=== PATIENT | female | born 1950 | race Caucasian/White ===

== ENCOUNTER → 2016-07-06 | Outpatient (CLI) | payer MEDICARE ==
[~2016-07-06] MED LIST: AMLO5TAB2 PO; METO-272 PO; PRV20T PO; RMP5C PO
--- NOTE | 2016-07-07 13:44 | Diagnostic Imaging Report ---
Bilateral screening mammogram. The current study was also evaluated with a Computer Aided Detection (CAD) system. INDICATION: Screening. No current complaints stated on the questionnaire. COMPARISON: 06/27/15. FINDINGS: The breasts are composed of scattered fibroglandular densities, slightly more dense in the central lateral aspect of each breast. There are punctate calcifications seen. Allowing for technique and positional differences, no suspicious change is seen. IMPRESSION: No significant change. ACR BI-RADS Category 2: Benign findings. Result letter will be mailed to the patient. Note: At least 10% of breast cancer is not imaged by mammography. Dictated by: Dictated on workstation # [id number]
== END ==
LOC: RAD 09:06
PROVIDERS: ATTEND Internal Medicine
DX: Z12.31 Encounter for screening mammogram for malignant neoplasm of breast (principal)
CPT/HCPCS: 77067

== ENCOUNTER → 2017-07-08 | Outpatient (CLI) | payer MEDICARE ==
--- NOTE | 2017-07-08 12:29 | Diagnostic Imaging Report ---
Indication: Routine screening. Comparison is made with prior study from 07/06/2016 and 06/27/2015. 2-D and 3-D bilateral screening mammography was performed with CAD. FIndings: Scattered fibroglandular densities are identified bilaterally. There is a bilobed density in the inferior right breast at mid depth, best seen on the MLO view. No correlate on the CC view is seen. This appears to be slightly lateral on the sae views. Extra views are recommended. No other masses identified. No malignant- appearing calcifications are seen. The axillae are unremarkable. Impression: BI-RADS 0 Right breast density. Additional views are recommended for further evaluation. ACR BI-RADS Category 0: Incomplete. (Needs additional imaging evaluation). Result letter will be mailed to the patient. Note: At least 10% of breast cancer is not imaged by mammography. Dictated by: Dictated on workstation # [id number]
== END ==
LOC: RAD 08:25
PROVIDERS: ATTEND Internal Medicine
DX: Z12.31 Encounter for screening mammogram for malignant neoplasm of breast (principal)
CPT/HCPCS: 77067

== ENCOUNTER → 2017-07-27 | Outpatient (CLI) | payer MEDICARE ==
--- NOTE | 2017-07-27 09:12 | Diagnostic Imaging Report ---
Indication: Right breast density. Patient presents for additional views. Correlation is made with recent screening study from 07/08/2017. 2-D and 3-D unilateral right diagnostic mammography was performed including spot compression ML and conventional ML views. Additional views confirm the presence of a circumscribed tiny lobulated nodular density in the inferior right breast approximately 8 cm from the nipple. This appears fairly benign appearance, appears to be slightly lateral. Impression: BI-RADS 0 Circumscribed slightly lobulated tiny nodular density in the inferior right breast. Further evaluation with ultrasound is recommended. ACR BI-RADS Category 0: Incomplete. (Needs additional imaging evaluation). Result letter will be mailed to the patient. Note: At least 10% of breast cancer is not imaged by mammography. Dictated by: Dictated on workstation # [id number]
--- NOTE | 2017-07-27 09:17 | Diagnostic Imaging Report ---
Indication: Right breast density. Correlation study with diagnostic mammogram earlier the same day. Sonographic interrogation of the inferior and slightly outer right breast was performed. At the 7:30 location, approximately 8 cm from the nipple, there is a simple 4 mm cyst. This could potentially represent the density noted on recent mammogram. No other abnormalities are detected. No solid masses seen. Impression: BI-RADS 3 A 4 mm simple cyst 7:30 location of the right breast, 8 cm from the nipple. This could conceivably correlate with the mammographic density. Even so, followup right mammogram and right breast ultrasound in 6 months is recommended to show continued stability. Dictated by: Dictated on workstation # [id number]
== END ==
LOC: RAD 08:19
PROVIDERS: ATTEND Internal Medicine
DX: N60.01 Solitary cyst of right breast (principal)

== ENCOUNTER → 2018-01-23 | Outpatient (CLI) | payer MEDICARE ==
--- NOTE | 2018-01-24 09:04 | Diagnostic Imaging Report ---
INDICATION: Right breast mass. Diagnostic right mammogram The screening mammogram performed on 07/27/2017 suggested a lobulated nodular density in the inferior aspect of the right breast. The ultrasound examination of this area suggested a small cyst. On this exam the nodular density in question is again evident and does not seem to have changed adversely. I do suspect that this is a benign process. A followup ultrasound exam is pending for further evaluation. The fibroglandular tissue in the right breast is heterogeneously dense. This does limit the sensitivity of this exam. Overall, there does not appear to have been any significant change when compare the previous study. There is no primary or second sign of malignancy noted. IMPRESSION: The small nodular density in the inferior aspect of the right breast seen previously appears stable. Most likely this is a benign process. Ultrasound is pending for further study. ACR BI-RADS Category 0: Incomplete. (Needs additional imaging evaluation). Result letter will be mailed to the patient. Note: At least 10% of breast cancer is not imaged by mammography. Dictated by: Dictated on workstation # [id number]
--- NOTE | 2018-01-24 10:16 | Diagnostic Imaging Report ---
EXAMINATION: Ultrasound of the right breast limited. INDICATION: Abnormal mammogram The diagnostic mammogram performed on 07/27/2017 noted a lobulated nodular density in the inferior aspect of the right breast. The ultrasound exam performed on the same day suggested a 4 mm simple cyst in the 7:30 position of the right breast. The diagnostic mammogram performed earlier today suggest that the nodular density in question was stable. On this exam the cyst in the 7:30 position has decreased in size and now measures approximately 3 MM. This cyst still has a generally benign appearance. In the interval since the prior study a bilobed avascular hypoechoic lesion has developed in the 6 o'clock position of the breast roughly 3 CM from the nipple. Whether this corresponds to the density seen on mammogram is not certain. I do suspect that this is a benign process. Even so, I would recommend that a short-term (6 month) followup mammogram and ultrasound exam of the right breast be performed for continued evaluation. IMPRESSION: The small suspected cyst in the 7:30 position of the right breast and the bilobed hypoechoic lesion in the 6 o'clock position are most likely benign. There is no solid mass to suggest malignancy. Recommendations as above. ACR BI-RADS Category 3: Probably benign findings. Dictated by: Dictated on workstation # [id number]
== END ==
LOC: RAD 12:50
PROVIDERS: ATTEND Internal Medicine
DX: N60.01 Solitary cyst of right breast (principal); N63.10 Unspecified lump in the right breast, unspecified quadrant

== ENCOUNTER → 2018-07-14 | Outpatient (CLI) | payer MEDICARE ==
--- NOTE | 2018-07-14 15:40 | Diagnostic Imaging Report ---
Indication: Followup right breast nodule. Correlation is made with prior mammogram from 07/08/2017, 01/23/2018. 2-D and 3-D bilateral diagnostic mammography was performed with CAD. Scattered fibroglandular densities are identified bilaterally. Nodular density in the inferior right breast on MLO view appears to be stable. No new mass is seen. No malignant-appearing microcalcifications are identified. Axillae are unremarkable. Impression: BI-RADS category 0 Stable nodular density inferior right breast. Further evaluation of previously noted nodules at the 7:30 and 6 o'clock location right breast with ultrasound is recommended and will be performed today. ACR BI-RADS Category 0: Incomplete. (Needs additional imaging evaluation). Result letter will be mailed to the patient. Note: At least 10% of breast cancer is not imaged by mammography. Dictated by: Dictated on workstation # [id number]
--- NOTE | 2018-07-14 15:44 | Diagnostic Imaging Report ---
Indication: Right breast nodules. Patient presents for followup. Correlation was made with prior right breast ultrasound from 01/23/2018. Sonographic interrogation of the 7:30 and 6 clock locations of the right breast performed. At the 7:30 location, 7 cm from the nipple, there is a 2 mm x 2 mm x 3 mm circumscribed hypoechoic nodule, suggestive of a cyst. This is stable to perhaps slightly smaller when compared with prior ultrasound. 6 clock location, 3 cm from the nipple, does show a bilobed hypoechoic nodule measuring approximate 4 mm x 2 mm. This is stable to perhaps slightly smaller when compared with prior ultrasound. No new mass is detected. Impression: BI-RADS category 2 Benign-appearing hypoechoic nodule 6 o'clock and 7:30 location of the right breast. These are stable when compared to the exam from 01/23/2018. Patient may return to routine annual screening mammography. ACR BI-RADS Category 2: Benign findings. Result letter will be mailed to the patient. Note: At least 10% of breast cancer is not imaged by mammography. Dictated by: Dictated on workstation # [id number]
== END ==
LOC: RAD 12:20
PROVIDERS: ATTEND Internal Medicine
DX: N63.13 Unspecified lump in the right breast, lower outer quadrant (principal)
CPT/HCPCS: 77066

== ENCOUNTER → 2018-08-18 | Outpatient (CLI) | payer MEDICARE ==
--- NOTE | 2018-08-18 09:19 | Diagnostic Imaging Report ---
INDICATION: Chest wall and back pain, greatest on the right, symptoms 3 weeks in duration. FINDINGS: The lungs are clear. The heart size and vascularity are normal. There is no effusion, pneumothorax or failure pattern. There is no free air beneath the diaphragms. Bilateral rib radiographs showed no bony destructive lesion. No fracture or dislocation. Note is made of stones involving the lower pole of the left kidney. IMPRESSION: Clear lungs with no acute chest wall pathology. Left-sided nephrolithiasis noted. Dictated by: Dictated on workstation # [id number]
== END ==
LOC: RAD 08:45
PROVIDERS: ATTEND Internal Medicine
DX: N20.0 Calculus of kidney (principal); R05 Cough; R07.81 Pleurodynia
CPT/HCPCS: 71111

== ENCOUNTER → 2019-08-03 | Outpatient (CLI) | payer MEDICARE ==
--- NOTE | 2019-08-03 09:38 | Diagnostic Imaging Report ---
INDICATION: Routine screening. COMPARISON is made with prior mammograms from 07/14/2018 and 07/08/2017. 2-D and 3-D bilateral screening mammography was performed with CAD. Scattered fibroglandular densities are identified bilaterally. Nodular density inferior right breast appears stable. No new mass or malignant appearing microcalcifications are seen. Axillae are unremarkable. IMPRESSION: BI-RADS Category 2 No mammographic features suspicious for malignancy are identified. ACR BI-RADS Category 2: Benign findings. Result letter will be mailed to the patient. Note: At least 10% of breast cancer is not imaged by mammography. Dictated by: Dictated on workstation # [id number]
== END ==
LOC: RAD 07:38
PROVIDERS: ATTEND Internal Medicine
DX: Z12.31 Encounter for screening mammogram for malignant neoplasm of breast (principal)
CPT/HCPCS: 77063; 77067

== ENCOUNTER → 2020-08-05 | Outpatient (CLI) | payer MEDICARE ==
--- NOTE | 2020-08-05 15:16 | Diagnostic Imaging Report ---
INDICATION: Routine screening. COMPARISON: 08/03/2019 and 07/14/2018. TECHNIQUE: 2D and 3D bilateral screening mammography was performed with CAD. FINDINGS: Scattered fibroglandular densities are identified bilaterally. The fibronodular parenchymal pattern appears to be stable. No spiculated mass or malignant appearing microcalcifications are seen. The axillae are unremarkable. IMPRESSION: No mammographic features suspicious for malignancy are identified. ACR BI-RADS Category 2: Benign findings. Result letter will be mailed to the patient. Note: At least 10% of breast cancer is not imaged by mammography. Dictated by: Dictated on workstation # [id number]
== END ==
LOC: RAD 08:30
PROVIDERS: ATTEND Internal Medicine
DX: Z12.31 Encounter for screening mammogram for malignant neoplasm of breast (principal)
CPT/HCPCS: 77063; 77067

== ENCOUNTER → 2021-08-18 | Outpatient (CLI) | payer MEDICARE ==
--- NOTE | 2021-08-18 11:50 | Diagnostic Imaging Report ---
INDICATION: Screening for osteoporosis COMPARISON: 06/05/2009 FINDINGS: AP Spine L1-L4: [BMD (g/cm2): 1.057] [T-Score: -1.2] [Z-Score: -0.3] [BMD Previous: 1.114] [BMD % Change: -5.1] LT Hip Neck: [BMD (g/cm2): 0.921] [T-Score: -0.8] [Z-Score: 0.4] LT Hip Total: [BMD (g/cm2):1.066] [T-Score:0.5] [Z-Score: 1.4] [BMD Previous: 0.994] [BMD % Change: 7.2] RT Hip Neck: [BMD (g/cm2):0.976] [T-Score:-0.4] [Z-Score:0.8] RT Hip Total: [BMD (g/cm2):1.052] [T-score:0.4] [Z-Score:1.3] [BMD Previous:1.056] [BMD % Change:-0.4] *Indicates significant change from prior examination based on 95% confidence level. World Health Organization criteria for BMD interpretation classify patients as Normal (T-score at or above -1.0), Osteopenic (T-score between -1.0 and -2.5) or Osteoporotic (T-score at or below -2.5). LIMITATIONS AND MODIFICATION: None. FRACTURE RISK (FRAX SCORE): The ten year probability of (%): Major Osteoporotic Fracture: [12] Hip Fracture: [2.6] IMPRESSION: 1. Osteopenia (Low bone mass). 2. No significant change in bone mineral density since prior examination. 3. See below National Osteoporosis Foundation guidelines on when to potentially initiate pharmacologic therapy. Based on the National Osteoporosis Foundation Guidelines, pharmacologic treatment should be initiated in any of the following, unless clinical conditions suggest otherwise: * Any patient with prior fragility fracture of the hip or vertebrae. A spine fracture indicates 5X risk for subsequent spine fracture and 2X risk for subsequent hip fracture. * Osteoporosis (T-score <-2.5). * Postmenopausal women and men age 50 and older with low bone mass/osteopenia (T-score between -1.0 and -2.5) by DXA and 10-year major osteoporotic fracture greater than 20% or a 10-year probability of hip fracture greater than 3%. These fracture risks are supplied above in the FRAX score, if applicable. * Clinician judgement and/or patient preferences may indicate treatment for people with 10-year fracture probabilities above or below these levels. Dictated by: Dictated on workstation # [id number]
--- NOTE | 2021-08-18 13:11 | Diagnostic Imaging Report ---
INDICATION: Routine screening. COMPARISON: 08/05/2020 and 08/03/2019. TECHNIQUE: 2D and 3D bilateral screening mammography was performed with CAD. FINDINGS: Scattered fibroglandular densities are identified bilaterally. The parenchymal pattern is stable. No dominant mass or malignant-appearing microcalcifications are seen. The axillae are unremarkable. IMPRESSION: No mammographic features suspicious for malignancy are identified. ACR BI-RADS Category 1: Negative. Result letter will be mailed to the patient. Note: At least 10% of breast cancer is not imaged by mammography. Dictated by: Dictated on workstation # [id number]
== END ==
LOC: RAD 08:15
PROVIDERS: ATTEND Internal Medicine
DX: Z12.31 Encounter for screening mammogram for malignant neoplasm of breast (principal); Z13.820 Encounter for screening for osteoporosis; M81.0 Age-related osteoporosis without current pathological fracture; M85.80 Other specified disorders of bone density and structure, unspecified site
CPT/HCPCS: 77063; 77067; 77080

== ENCOUNTER → 2022-08-20 | Outpatient (CLI) | payer MEDICARE ==
--- NOTE | 2022-08-20 13:18 | Diagnostic Imaging Report ---
INDICATION: Routine screening. Comparison is made with prior mammogram from 08/18/2021 and 08/05/2020. 2-D and 3-D bilateral screening mammography was performed with CAD. Both breasts are heterogeneously dense, limiting the sensitivity of mammography. A small nodule in the left breast appears stable. There has been development of a circumscribed nodule in the lower slightly inner right breast approximately 5 to 7 cm from the nipple. This most likely represents developing cyst. No other masses are seen. No malignant-appearing microcalcifications are identified. Axillae are unremarkable. IMPRESSION: Developing circumscribed density in the lower slightly inner right breast, likely a cyst. Further evaluation of this area with ultrasound is recommended. ACR BI-RADS Category 0: Incomplete. (Needs additional imaging evaluation). Result letter will be mailed to the patient. Note: At least 10% of breast cancer is not imaged by mammography. BI-RADS Category 0 Dictated by: Dictated on workstation # [id number]
== END ==
LOC: RAD 08:30
PROVIDERS: ATTEND Internal Medicine
DX: Z12.31 Encounter for screening mammogram for malignant neoplasm of breast (principal)
CPT/HCPCS: 77063; 77067

== ENCOUNTER → 2022-09-02 | Outpatient (CLI) | payer MEDICARE ==
--- NOTE | 2022-09-02 10:55 | Diagnostic Imaging Report ---
Indication: Right breast density on recent screening mammogram. The study is performed for further evaluation. Correlation is made with screening mammogram from 08/20/2022. Sonographic interrogation of the inferior right breast was performed. There is a round, simple-appearing cyst at the 6:00 location, 4-5 cm from the nipple measuring 5 mm x 4 mm x 4 mm. No internal vascularity is present. This likely accounts for the density noted mammographically. No other masses are seen. IMPRESSION: BI-RADS Category 2 Simple cyst, 6:00 location, 4 to 5 cm from the nipple, likely accounting for the mammographic density. The patient may return to routine annual screening mammography. ACR BI-RADS Category 2: Benign findings. Result letter will be mailed to the patient. Note: At least 10% of breast cancer is not imaged by mammography. Dictated by: Dictated on workstation # [id number]
== END ==
LOC: RAD 09:15
PROVIDERS: ATTEND Internal Medicine
DX: N60.01 Solitary cyst of right breast (principal)